=== PATIENT | female | born 1980 | race Caucasian/White ===

== ENCOUNTER 2019-03-18 09:36 | Emergency (ER) | payer MEDICAID ==
--- NOTE | 2019-03-18 10:37 | EDM.PDOC ---
ED HPI GENERAL MEDICAL PROBLEM - General Chief Complaint: Back Pain or Injury Stated Complaint: BACK PAIN Time Seen by Provider: 03/18/19 10:32 Source of Information: Reports: Patient, Family, RN Notes Reviewed History Limitations: Reports: No Limitations - History of Present Illness INITIAL COMMENTS - FREE TEXT/NARRATIVE: 38-year-old female presents emergency department today complaint of low back pain, she injured herself earlier today when she slipped trying to get into her car fell backwards and landed on the snowbank landed predominantly on her left gluteus she is experiencing pain there and in the left lower back. 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 Social & Family History - Tobacco Use Years of Tobacco use: 16 Packs/Tins Daily: 0.5 - Caffeine Use Caffeine Use: Reports: Energy Drinks - Recreational Drug Use Recreational Drug Use: No ED ROS GENERAL - Review of Systems Review Of Systems: See Below Constitutional: Reports: No Symptoms GI/Abdominal: Reports: No Symptoms Musculoskeletal: Reports: Back Pain Neurological: Reports: No Symptoms ED EXAM,LOWER BACK PAIN/INJURY - Physical Exam Exam: See Below Text/Narrative:: Examination of the lower back and do not appreciate any bruising there is no spinal tenderness she is tender to palpation left paraspinal muscle left gluteus Exam Limited By: No Limitations General Appearance: Alert, WD/WN, No Apparent Distress Course - Vital Signs Last Recorded V/S: Last Vital Signs Temp 98.3 F 03/18/19 10:04 Pulse 78 03/18/19 10:04 Resp 16 03/18/19 10:04 BP 116/77 03/18/19 10:04 Pulse Ox 99 03/18/19 10:04 - Orders/Labs/Meds Meds: Medications Discontinued Medications Generic Name Dose Route Start Last Admin Trade Name Freq PRN Reason Stop Dose Admin Cyclobenzaprine HCl 10 mg 03/18/19 10:34 03/18/19 10:40 Flexeril PO 03/18/19 10:35 10 mg ONETIME ONE Administration Fentanyl 50 mcg 03/18/19 12:37 03/18/19 12:40 Sublimaze IM 03/18/19 12:38 50 mcg ONETIME ONE Administration Ketorolac Tromethamine 60 mg 03/18/19 10:34 03/18/19 10:39 Toradol IM 03/18/19 10:35 60 mg ONETIME ONE Administration Departure - Departure Time of Disposition: 13:33 Disposition: Home, Self-Care 01 Condition: Fair Clinical Impression: Contusion of lower back Qualifiers: Encounter type: initial encounter Qualified Code(s): S30.0XXA - Contusion of lower back and pelvis, initial encounter - Discharge Information Instructions: Contusion, [id number], Back Injury Prevention, [id number] Referrals: PCP,None [Primary Care Provider] - Forms: ED Department Discharge Additional Instructions: Use ibuprofen for baseline pain control, use hydrocodone for breakthrough pain, try the Flexeril as needed as a muscle relaxant, please followup with your primary care provider in 3-5 days if not better, please call return to the emergency department with worsening of symptoms. - Assessment/Plan Plan: Assessment Acuity = acute Site and laterality = low back contusion Etiology = secondary to fall Manifestations = pain Location of injury = Home Lab values = x-rays pelvis and lumbar spine negative Plan Did review x-ray results with him prescription for hydrocodone 5/325 1 tab p.o. 3 times daily as needed total #10 follow-up with primary care upon return home if not better, Flexeril 10 mg p.o. 3 times daily as needed total #15 This note was dictated using [employer] voice recognition software please call with any questions on syntax or grammar.
[2019-03-18] MEDS: Ketorolac 60 MG/2 ML SDV IM ONE (10:39)
[2019-03-18] MEDS: Cyclobenzaprine 10 MG Tab PO ONE (10:40)
--- NOTE | 2019-03-18 12:01 | CRLCR ---
INDICATION: FALL TECHNIQUE: Lumbar spine 3 views. COMPARISON: None. FINDINGS: Bones: Alignment is normal. No fractures or bone lesions. Joint spaces: Disc spaces are normal. Facet joints are normal. Soft tissues: Negative. IMPRESSION: Negative lumbar spine. Dictated by: Varun Gould MD @ 03/18/2019 12:00:11 (Electronically Signed)
--- NOTE | 2019-03-18 12:01 | CRLCR ---
INDICATION: Fall TECHNIQUE: AP pelvis two views COMPARISON: None FINDINGS: Bones: Alignment is normal. No fractures or bone lesions. Joint spaces: Unremarkable. Soft tissues: Unremarkable. Miscellaneous: IUD projects over the mid pelvis. IMPRESSION: Negative. Dictated by Varun Gould MD @ 03/18/2019 11:59:09 AM Dictated by: Vraun Gould MD @ 03/18/2019 11:59:19 (Electronically Signed)
[2019-03-18] MEDS: fentaNYL 100 MCG/2 ML SDV IM ONE (12:40)
== END 2019-03-18 13:49 | disposition home or self-care (01) ==
LOC: JP.ED 09:36
DX: S30.0XXA Contusion of lower back and pelvis, initial encounter (principal); Z88.0 Allergy status to penicillin; Z88.2 Allergy status to sulfonamides; Z88.8 Allergy status to other drugs, medicaments and biological substances; V48.4XXA Person boarding or alighting a car injured in noncollision transport accident, initial encounter; Y92.410 Unspecified street and highway as the place of occurrence of the external cause
CPT/HCPCS: 72100; 72170; 96372; 99283-25; A9270-GY; J1885; J3010